=== PATIENT | female | born 1960 | race Caucasian/White ===

== ENCOUNTER → 2017-02-10 | Outpatient (CLI) | payer OTHER, MEDICAID | LOC: FIMAGING 17:23 | PROVIDERS: ATTEND Registered Nurse | DX: R06.02 Shortness of breath (principal); J40 Bronchitis, not specified as acute or chronic ==

== ENCOUNTER → 2017-09-02 | Outpatient (CLI) | payer OTHER, MEDICAID | LOC: FIMAGING 14:23 | PROVIDERS: ATTEND Family Medicine | DX: Z12.31 Encounter for screening mammogram for malignant neoplasm of breast (principal); Z80.3 Family history of malignant neoplasm of breast ==

== ENCOUNTER → 2018-10-14 | Outpatient (CLI) | payer OTHER, MEDICAID | LOC: CIMAGING 11:26 | PROVIDERS: ATTEND Family Medicine | DX: Z12.31 Encounter for screening mammogram for malignant neoplasm of breast (principal); Z80.3 Family history of malignant neoplasm of breast; N63.10 Unspecified lump in the right breast, unspecified quadrant ==

== ENCOUNTER → 2018-11-01 | Outpatient (CLI) | payer OTHER, MEDICAID | LOC: BRMIMAGING 13:23 ==